=== PATIENT | female | born 1960 | race Caucasian/White ===

== ENCOUNTER → 2017-06-09 | Outpatient (CLI) | payer BC ==
--- NOTE | 2017-06-09 13:09 | KCIC ---
Bilateral digital screening mammograms: Reason for examination: Routine screening. Comparison is made to previous studies dated 06/16/2016 and 06/16/2015. Interpretation was made with the benefit of CAD. The skin and nipples show no abnormalities. No abnormal lymph nodes are seen. The breast parenchyma is predominantly fatty. (Breast density: Category A.) There are no dominant masses, suspicious calcifications or architectural distortions. A few benign calcifications are again seen. Impression: No evidence of malignancy. Recommend routine screening. BI-RADS Category 2: Benign. "Our facility is accredited by the [employer] Mammography Program." This patient's information has been entered into a reminder system for the patient to be notified with the results of her examination and a target date for the next mammogram. Electronically signed by: Francheska Triplett MD (06/09/2017 1:06 PM) [id number]
== END | disposition home or self-care (01) ==
LOC: KCIC MAMMO 11:12
PROVIDERS: ATTEND Family Medicine
DX: Z12.31 Encounter for screening mammogram for malignant neoplasm of breast (principal)
CPT/HCPCS: G0202; 77067

== ENCOUNTER → 2017-07-06 | Day surgery (SDC) | payer BC ==
[~2017-07-06] MED LIST: HYDROmorphone 2 MG/ML VIAL IV; LIDOCAINE 1% PF 2 ML VIAL. ID; LIDOCAINE 2% PF Vial for OR 5 ML VIAL.; MORPHINE SULFATE 2 MG/ML DISP.SYRIN. IV; ONDANSETRON PF 4 MG/2 ML VIAL. IV; PROCHLORPERAZINE 10 MG/2 ML VIAL. IV; PROPOFOL 20 ML IV; fentaNYL PF VIAL 100 MCG/2 ML VIAL IV
[2017-07-06] MEDS: IV RINGERS,LACTATED 1000ML 1,000 ML IV (07:05)
== END | disposition home or self-care (01) ==
LOC: ENDOS 06:22
DX: Z12.11 Encounter for screening for malignant neoplasm of colon (principal); K64.0 First degree hemorrhoids; K57.30 Diverticulosis of large intestine without perforation or abscess without bleeding; I10 Essential (primary) hypertension; E78.00 Pure hypercholesterolemia, unspecified; Z88.2 Allergy status to sulfonamides; Z82.49 Family history of ischemic heart disease and other diseases of the circulatory system; Z98.51 Tubal ligation status
CPT/HCPCS: 45378; J2704